=== PATIENT | male | born 1935 | race African-American/Black ===

== ENCOUNTER 2016-03-25 20:37 | Inpatient (IN) | payer MEDICARE, OTHER ==
[~2016-03-25] VITALS: Ht 172.7 cm; Wt 69.9 kg
[~2016-03-25 20:37] MED LIST: ACET325T9 PO; ASPI81TA2 PO; BISA10SU55 RC; DEXT37.56 PO; DOXA2TAB PO; DUTA0.5C PO; GABA-586 PO; GLIM4TAB2 PO; GLUC1KIT IM; HYDR-2762 PO; HYDR-965 PO; IBUP-1007 PO; IMIP50TA3 PO; ISOS30TA4 PO; LORA0.5T96 PO; MAG355OR12 PO; MAGN2400 PO; METF500T4 PO; MULT-460 PO; PHEN100C PO; SENN1TAB21 PO; SIMV10TA3 PO; VALS40TA2 PO
--- NOTE | 2016-03-25 21:10 | RAD ---
PROCEDURE CT scan of the head without contrast 03/25/2016 HISTORY Left-sided weakness with verbal changes. Code stroke. TECHNIQUE Unenhanced contiguous, 5 millimeter axial sections were obtained through the head. One or more of the following individualized dose reduction techniques were utilized for this study: 1. Automated exposure control. 2. Adjustment of the mA and/or kV according to patient size. 3. Use of iterative reconstruction technique. FINDINGS The patient is status post left frontal temporal craniotomy. A aneurysm clip is seen in the left aspect of the suprasellar cistern. There is generalized parenchymal atrophy. Areas of decreased attenuation are seen within the periventricular and and subcortical white matter of both cerebral hemispheres consistent with areas of small vessel ischemic disease. No acute parenchymal abnormality is seen. No extra-axial fluid collection is noted. No skull fracture is seen. IMPRESSION No acute intracranial abnormality is seen. Dr. Sinclair was notified of this result. Electronically signed by: Finn Portillo MD (Mar 25, 2016 21:09:24)
--- NOTE | 2016-03-25 21:32 | PHYS DOC ---
Past Medical History Past Medical History: Anxiety, CAD, Constipation, Depression, Diabetes-Type II , Diverticulitis, Diverticulosis, High Cholesterol, Hypertension, Prostatitis, Seizure, Stroke (Hemorrhagic), UTI, Vascular Disease, Other Additional Past Medical Histor: Mild left hemiparesis,BPH,EPILEPSY,DYSPHAGIA Past Surgical History: Other Additional Past Surgical Histo: R AKA Alcohol Use: None Drug Use: Cocaine Adult General Chief Complaint Chief Complaint: NEURO SYMPTOMS/DEFICITS HPI HPI Patient is a 81 year old male who presents by EMS from nursing facility for evaluation of acute altered mental status and left-sided weakness. They noted him to be in his normal state of health at 1940 with clear speech and being talkative. At 1999, he was noted to have left-sided facial droop, not using his left dominant hand as well as normal, and slurred speech. He denies headache, nausea, chest pain, fever, injury. Otherwise answer review of systems questions well. Nursing facility gave him an ASA 325mg prior to EMS transport. His brother is at bedside and states he appears to have left facial droop and slurred speech that is new. 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 Review of Systems Review of Systems Review of systems otherwise unobtainable secondary to clinical status Allergies Allergies Allergies Coded Allergies Type Severity Reaction Last Updated Verified I S O L A T I O N *CONTACT* Allergy Unknown 03/03/16 Yes No Known Medication Allergies Allergy Unknown 03/03/16 Yes Physical Exam Physical Exam Constitutional: Well developed, well nourished, no acute distress, non-toxic appearance. [] HENT: Normocephalic, atraumatic, bilateral external ears normal, oropharynx moist, no oral exudates, nose normal. [] Eyes: PERRLA, EOMI. [] Neck: Normal range of motion, supple, no stridor. [] Cardiovascular:Heart rate regular rhythm [] Lungs & Thorax: Bilateral breath sounds clear to auscultation [] Abdomen: Bowel sounds normal, soft, no tenderness. [] Skin: Warm, dry, no erythema, no rash. [] Back: No tenderness, no CVA tenderness. [] Extremities: No tenderness, ROM intact, no edema. Right AKA with well healing surgical site. [] Neurologic: Arousal - alert and cooperative, A&O x 3 Speech - regular rate, slurred Language: fluent and spontaneous speech CN 2: PERRL CN 3, 4, 6: EOM intact, has bilateral horizontal nystagmus CN 5: Normal sensation to light touch CN 7: Mild left facial droop CN 8: Equal hearing to finger rub CN 9/10: Intact CN 11: Normal shoulder shrug bilaterally CN 12: Tongue midline Motor exam: Bilateral upper and lower extremities with normal tone, 5/5 strength in upper extremities, 3/5 strength in LLE. Has mild left upper extremity drift, will move LLE but lets it fall to bed if raised. Coordination: Finger to nose normal Gait: not tested. Psychologic: Affect normal, judgement normal, mood normal. [] Current Patient Data Vital Signs Vital Signs Date Time Temp Pulse Resp B/P Pulse Ox O2 Delivery O2 Flow Rate FiO2 03/25/16 22:00 70 143/75 97 Room Air 03/25/16 20:40 99.0 18 99.0 Lab Values Laboratory Tests Test 03/25/16 21:45 White Blood Count 6.3x10^3/uL (4.0-11.0) Red Blood Count 3.40x10^6/uL (4.30-5.70) L Hemoglobin 10.6g/dL (13.0-17.5) L Hematocrit 31.9% (39.0-53.0) L Mean Corpuscular Volume 94fL (79-100) Mean Corpuscular Hemoglobin 31pg (25-35) Mean Corpuscular Hemoglobin Concent 33g/dL (31-37) Red Cell Distribution Width 15.2% (11.5-14.5) H Platelet Count 349x10^3/uL (140-400) Neutrophils (%) (Auto) 55% (31-73) Lymphocytes (%) (Auto) 32% (24-48) Monocytes (%) (Auto) 11% (0-9) H Eosinophils (%) (Auto) 2% (0-3) Basophils (%) (Auto) 0% (0-3) Neutrophils # (Auto) 3.5x10^3uL (1.8-7.7) Lymphocytes # (Auto) 2.0x10^3/uL (1.0-4.8) Monocytes # (Auto) 0.7x10^3/uL (0.0-1.1) Eosinophils # (Auto) 0.1x10^3/uL (0.0-0.7) Basophils # (Auto) 0.0x10^3/uL (0.0-0.2) Prothrombin Time 16.2SEC (11.7-14.0) H Prothrombin Time INR 1.4 (0.8-1.1) H PTT 29SEC (24-38) Sodium Level 140mmol/L (136-145) Potassium Level 3.8mmol/L (3.5-5.1) Chloride Level 102mmol/L (98-107) Carbon Dioxide Level 29mmol/L (21-32) Anion Gap 9 (6-14) Blood Urea Nitrogen 13mg/dL (8-26) Creatinine 1.1mg/dL (0.7-1.3) Estimated GFR (Cockcroft-Gault) 78.1 Glucose Level 86mg/dL (70-99) Calcium Level 8.9mg/dL (8.5-10.1) Magnesium Level 2.0mg/dL (1.8-2.4) Total Bilirubin 0.1mg/dL (0.2-1.0) L Direct Bilirubin < 0.1mg/dL (0.0-0.2) Aspartate Amino Transferase (AST) 33U/L (15-37) Alanine Aminotransferase (ALT) 16U/L (16-63) Alkaline Phosphatase 241U/L (46-116) H Troponin I Quantitative < 0.017ng/mL (0.000-0.055) BX-Jfu-T-Type Natriuretic Peptide 60pg/mL (0-449) Total Protein 8.1g/dL (6.4-8.2) Albumin 3.4g/dL (3.4-5.0) Laboratory Tests 03/25/16 21:45 Laboratory Tests 03/25/16 21:45 EKG EKG EKG as interpreted by me as normal sinus rhythm, rate 69, no ST-T changes, normal intervals, no ectopy Radiology/Procedures Radiology/Procedures Chest x-ray as interpreted by me as no acute cardiopulmonary disease process Head CT without contrast IMPRESSION No acute intracranial abnormality is seen. Dr. Ayon was notified of this result. Electronically signed by: Finn Portillo MD (Mar 25, 2016 21:09:24) Course & Med Decision Making Course & Med Decision Making Pertinent Labs and Imaging studies reviewed. (See chart for details) NIHSS 9 (1 left face droop, 1 LUE drift, 2 LLE drift, 2 aphasia, 2 dysarthria, 1 inattention) with nonacute head CT as above concerning for acute ischemic stroke. He is not a thrombolysis candidate due to history of hemorrhagic stroke. His lab evaluation is unremarkable. Discussed findings with Dr. Mendoza, neurology, who agrees with no TPA at this time and recommends starting plavix as he is on chronic ASA therapy. Discussed admit with Dr. Heck, who will admit. Dragon Disclaimer Dragon Disclaimer This electronic medical record was generated, in whole or in part, using a voice recognition dictation system. Departure Departure Impression: Primary Impression: Stroke Disposition: ADMITTED INPATIENT Condition: STABLE Referrals: SEGUNDO HENRY MD (PCP) Problem Qualifiers Primary Impression: Stroke CVA mechanism: unspecified Qualified Code: I63.9 - Cerebral infarction, unspecified Jessika AYON MD Mar 25, 2016 21:32
[2016-03-25 22:17] LABS: ANION GAP 9 (6-14); BLOOD UREA NITROGEN 13 mg/dL (8-26); CALCIUM 8.9 mg/dL (8.5-10.1); CARBON DIOXIDE 29 mmol/L (21-32); CHLORIDE 102 mmol/L (98-107); CREATININE 1.1 mg/dL (0.7-1.3); GFR 78.1; GLUCOSE 86 mg/dL (70-99); POTASSIUM 3.8 mmol/L (3.5-5.1); SODIUM 140 mmol/L (136-145)
[2016-03-25 22:18] LABS: BASO % 0 % (0-3); EOS % 2 % (0-3); HEMATOCRIT 31.9 % (39.0-53.0); HEMOGLOBIN 10.6 g/dL (13.0-17.5); LYMPH % 32 % (24-48); MEAN CORPUSCULAR HEMOGLOBIN 31 pg (25-35); MEAN CORPUSCULAR HGB CONC 33 g/dL (31-37); MEAN CORPUSCULAR VOLUME 94 fL (79-100); MONO % 11 % (0-9); NEUT % 55 % (31-73); PLATELET COUNT 349 x10^3/uL (140-400); RED CELL DISTRIBUTION WIDTH 15.2 % (11.5-14.5); WHITE BLOOD COUNT 6.3 x10^3/uL (4.0-11.0)
[2016-03-25 22:23] LABS: ALBUMIN 3.4 g/dL (3.4-5.0); ALK PHOS 241 U/L (46-116); ALT (SGPT) 16 U/L (16-63); AST (SGOT) 33 U/L (15-37); DIRECT BILIRUBIN < 0.1 mg/dL (0.0-0.2); TOTAL BILIRUBIN 0.1 mg/dL (0.2-1.0); TOTAL PROTEIN 8.1 g/dL (6.4-8.2)
[2016-03-25 22:30] LABS: INR 1.4 (0.8-1.1); PROTHROMBIN TIME PATIENT 16.2 SEC (11.7-14.0)
[2016-03-25] MEDS ORDERED: ONDANSETRON PF 4 MG/2 ML VIAL. IV PRN (22:30)
[2016-03-25] MEDS ORDERED: ACETAMINOPHEN 325 MG TABLET. PO PRN (22:30)
[2016-03-25] MEDS ORDERED: FENTANYL PF 100 MCG/2 ML VIAL. IV PRN (22:30)
--- NOTE | 2016-03-25 23:13 | ACF ---
Admission Forms Criteria STROKE: HEMORRHAGIC Clinical Indications for Admission to Inpatient Care (Place 'X' for any and all applicable criteria): Admission is indicated for ANY ONE of the following(1)(2)(3)(4): [ X]I. Acute hemorrhagic (eg, intracerebral) stroke Extended stay beyond goal length of stay may be needed for(1)(2)(6) [ ]a) Surgical intervention (9) [ ]b) Major deficit [ ]c) Increased intracranial pressure [ ]d) Hydrocephalus [ ]e) Seizures [ ]f) Venous thromboembolism [ ]g) Severe electrolyte abnormality (eg, hypernatremia, hyponatremia) [ ]h) Hospital-acquired infection (eg, urinary tract infection, pneumonia) [ ]i) Comorbidities (heart failure, renal failure) The original [facility] content created by [facility] has been revised. The portions of the content which have been revised are identified through the use of italic text or in bold, and [facility] has neither reviewed nor approved the modified material. All other unmodified content is copyright [facility]. Please see references footnoted in the original [facility] edition 2016 Admission Criteria Met?: Yes ERMELINDA HUNT Mar 25, 2016 23:13
[2016-03-25 23:30] VITALS: BP 120/67
[2016-03-26] MEDS ORDERED: PNEUMOCOCCAL VAX SCREEN BY RX. MC ONE (00:30)
[2016-03-26] MEDS ORDERED: INFLUENZA VAX SCREEN BY RX. MC ONE (00:30)
[2016-03-26] MEDS ORDERED: BUPR150T6 PO (00:39)
[2016-03-26 03:00] VITALS: BP 121/68
[2016-03-26 04:38] LABS: BILIRUBIN,URINE SMALL (NEG); GLUCOSE,URINE NEGATIVE (NEG); NITRITE,URINE NEGATIVE (NEG); PH,URINE 5.5; PROTEIN,URINE NEGATIVE (NEG-TRACE); UROBILINOGEN,URINE 0.2 mg/dL (0.2 mg/dL)
[2016-03-26 04:45] LABS: BACTERIA,URINE 0 /HPF (0-FEW); SQUAMOUS EPITHELIAL CELL,UR FEW /LPF; WBC,URINE 0 /HPF (0-4)
[2016-03-26 07:25] VITALS: BP 101/69
--- NOTE | 2016-03-26 08:20 | RAD ---
EXAM: Chest, single view. HISTORY: Altered mental status. COMPARISON: 02/28/2016. FINDINGS: A frontal view of the chest is obtained. There is bilateral lower lobe atelectasis. There is stable widening of the right paratracheal stripe likely due to tortuous arch great vessels or intrathoracic extension of a thyroid goiter. The heart is normal in size. There is no pneumothorax or pleural effusion. IMPRESSION: 1. Bilateral lower lobe atelectasis. 2. Stable widening of the right paratracheal stripe.
--- NOTE | 2016-03-26 09:17 | EKG ---
[facility] [address] [place] [address] Test Date: 2016-03-25 Test Time: 21:00:22 Pat Name: FERNANDO LÓPEZ Department: Room: [facility] Gender: M Lead Mechanical Engineer: : 1935 Requested By: Jessika AYON Order Number: [id number] Reading MD: Cristian Evans Measurements Intervals [place] Rate: 69 P: 0 GA: 132 QRS: 30 QRSD: 70 T: -2 QT: 366 QTc: 394 Interpretive Statements SINUS RHYTHM Electronically Signed On 03-28-2016 10:31:05 [employer] by Cristian Evans
[2016-03-26] MEDS ORDERED: ACETAMINOPHEN 325 MG TABLET. PO PRN (09:30)
[2016-03-26] MEDS ORDERED: HYDROCODONE/APAP 5/325MG TABLET. PO PRN (09:30)
[2016-03-26] MEDS ORDERED: ONDANSETRON PF 4 MG/2 ML VIAL. IV PRN (09:30)
[2016-03-26] MEDS ORDERED: ALBUTEROL SULFATE 2.5 MG/3 ML NEBU. NEB PRN (09:30)
[2016-03-26] MEDS ORDERED: hydrALAZINE 20 MG/ML VIAL. IVP PRN (09:30)
[2016-03-26] MEDS ORDERED: IBUPROFEN 600 MG TABLET. PO PRN (09:45)
[2016-03-26] MEDS ORDERED: SENNOSIDES/DOCUSATE 8.6/50MG TABLET. PO PRN (09:45)
[2016-03-26] MEDS ORDERED: BISACODYL 10 MG SUPP.RECT RC PRN (09:45)
--- NOTE | 2016-03-26 09:47 | PDOC1 ---
History and Physical Past Medical History Past Medical History PAST MEDICAL HISTORY: Anxiety, coronary artery disease, depression, type 2 diabetes mellitus, hyperlipidemia, hypertension, seizures, CVA, UTI and vascular disease, hemiplegia and hemiparesis. PAST SURGICAL HISTORY: None. PERSONAL HISTORY: No smoking, no alcohol, former cocaine user. ALLERGIES: NKDA. FAMILY HISTORY: Hypertension. Family History Family History: No Significant Social History ALCOHOL: none Drugs: Cocaine Current Problem List Problem List Problems Medical Problems: (1) Stroke Status: Acute Current Medications Current Medications Current Medications Medications (Trade) Dose Ordered Sig/Hill Start Time Stop Time Status Last Admin Dose Admin Acetaminophen (Tylenol) 325 mg PRN Q6HRS PRN 03/26/16 09:30 Acetaminophen/ Hydrocodone Bitart (Lortab 5/325) 1 tab PRN Q6HRS PRN 03/26/16 09:30 Albuterol Sulfate (Ventolin Neb Soln) 2.5 mg PRN Q4HRS PRN 03/26/16 09:30 Fentanyl Citrate (Fentanyl 2ml Vial) 50 mcg PRN Q2HR PRN 03/25/16 22:30 03/26/16 22:29 Hydralazine HCl (Apresoline) 10 mg PRN Q4HRS PRN 03/26/16 09:30 Info (Do NOT chart on this placeholder) 1 each 1X ONCE 03/26/16 00:30 03/26/16 00:31 UNV Ondansetron HCl (Zofran) 4 mg PRN Q8HRS PRN 03/26/16 09:30 Pneumococcal Polyvalent Vaccine (Do NOT chart on this placeholder) 1 each 1X ONCE 03/26/16 00:30 03/26/16 00:31 UNV Allergies Allergies Allergies Coded Allergies Type Severity Reaction Last Updated Verified I S O L A T I O N *CONTACT* Allergy Unknown 03/03/16 Yes No Known Medication Allergies Allergy Unknown 03/03/16 Yes ROS Review of System NOT ABLE TO OBTAIN PT IS NOT CO OPERATIVE PER ER, SENT TO ER CONCERNING FOR CVA. , Physical Exam Physical Exam GEN.: No apparent distress. Alert and oriented to self HEENT: Head is normocephalic, atraumatic NECK: Supple. no jvd LUNGS: Clear to auscultation. HEART: RRR, S1, S2 present. Peripheral pulses intact ABDOMEN: Soft, nontender. Positive bowel sounds. not letting me examine his strength, not letting me see his lower extremities. rest of the exam, not able do it as he is not co operative, Vitals Vitals Vital Signs Date Time Temp Pulse Resp B/P Pulse Ox O2 Delivery O2 Flow Rate FiO2 03/26/16 07:25 97.5 78 17 101/69 95 Room Air 97.5 Labs Labs Laboratory Tests Test 03/25/16 21:45 03/26/16 04:30 White Blood Count 6.3x10^3/uL (4.0-11.0) Red Blood Count 3.40x10^6/uL (4.30-5.70) Hemoglobin 10.6g/dL (13.0-17.5) Hematocrit 31.9% (39.0-53.0) Mean Corpuscular Volume 94fL (79-100) Mean Corpuscular Hemoglobin 31pg (25-35) Mean Corpuscular Hemoglobin Concent 33g/dL (31-37) Red Cell Distribution Width 15.2% (11.5-14.5) Platelet Count 349x10^3/uL (140-400) Neutrophils (%) (Auto) 55% (31-73) Lymphocytes (%) (Auto) 32% (24-48) Monocytes (%) (Auto) 11% (0-9) Eosinophils (%) (Auto) 2% (0-3) Basophils (%) (Auto) 0% (0-3) Neutrophils # (Auto) 3.5x10^3uL (1.8-7.7) Lymphocytes # (Auto) 2.0x10^3/uL (1.0-4.8) Monocytes # (Auto) 0.7x10^3/uL (0.0-1.1) Eosinophils # (Auto) 0.1x10^3/uL (0.0-0.7) Basophils # (Auto) 0.0x10^3/uL (0.0-0.2) Prothrombin Time 16.2SEC (11.7-14.0) Prothromb Time International Ratio 1.4 (0.8-1.1) Activated Partial Thromboplast Time 29SEC (24-38) Sodium Level 140mmol/L (136-145) Potassium Level 3.8mmol/L (3.5-5.1) Chloride Level 102mmol/L (98-107) Carbon Dioxide Level 29mmol/L (21-32) Anion Gap 9 (6-14) Blood Urea Nitrogen 13mg/dL (8-26) Creatinine 1.1mg/dL (0.7-1.3) Estimated GFR (Cockcroft-Gault) 78.1 Glucose Level 86mg/dL (70-99) Calcium Level 8.9mg/dL (8.5-10.1) Magnesium Level 2.0mg/dL (1.8-2.4) Total Bilirubin 0.1mg/dL (0.2-1.0) Direct Bilirubin < 0.1mg/dL (0.0-0.2) Aspartate Amino Transf (AST/SGOT) 33U/L (15-37) Alanine Aminotransferase (ALT/SGPT) 16U/L (16-63) Alkaline Phosphatase 241U/L (46-116) Troponin I Quantitative < 0.017ng/mL (0.000-0.055) GO-Mka-P-Type Natriuretic Peptide 60pg/mL (0-449) Total Protein 8.1g/dL (6.4-8.2) Albumin 3.4g/dL (3.4-5.0) Urine Collection Type Unknown Urine Color Tracie Urine Clarity Clear Urine pH 5.5 Urine Specific [place] 1.025 Urine Protein Negativemg/dL (NEG-TRACE) Urine Glucose (UA) Negativemg/dL (NEG) Urine Ketones (Stick) Tracemg/dL (NEG) Urine Blood Trace (NEG) Urine Nitrite Negative (NEG) Urine Bilirubin Small (NEG) Urine Urobilinogen Dipstick 0.2mg/dL (0.2 mg/dL) Urine Leukocyte Esterase Negative (NEG) Urine RBC 1-2/HPF (0-2) Urine WBC 0/HPF (0-4) Urine Squamous Epithelial Cells Few/LPF Urine Amorphous Sediment Present/HPF Urine Bacteria 0/HPF (0-FEW) Urine Mucus Mod/LPF Laboratory Tests Test 03/25/16 21:45 03/26/16 04:30 White Blood Count 6.3x10^3/uL (4.0-11.0) Red Blood Count 3.40x10^6/uL (4.30-5.70) Hemoglobin 10.6g/dL (13.0-17.5) Hematocrit 31.9% (39.0-53.0) Mean Corpuscular Volume 94fL (79-100) Mean Corpuscular Hemoglobin 31pg (25-35) Mean Corpuscular Hemoglobin Concent 33g/dL (31-37) Red Cell Distribution Width 15.2% (11.5-14.5) Platelet Count 349x10^3/uL (140-400) Neutrophils (%) (Auto) 55% (31-73) Lymphocytes (%) (Auto) 32% (24-48) Monocytes (%) (Auto) 11% (0-9) Eosinophils (%) (Auto) 2% (0-3) Basophils (%) (Auto) 0% (0-3) Neutrophils # (Auto) 3.5x10^3uL (1.8-7.7) Lymphocytes # (Auto) 2.0x10^3/uL (1.0-4.8) Monocytes # (Auto) 0.7x10^3/uL (0.0-1.1) Eosinophils # (Auto) 0.1x10^3/uL (0.0-0.7) Basophils # (Auto) 0.0x10^3/uL (0.0-0.2) Prothrombin Time 16.2SEC (11.7-14.0) Prothromb Time International Ratio 1.4 (0.8-1.1) Activated Partial Thromboplast Time 29SEC (24-38) Sodium Level 140mmol/L (136-145) Potassium Level 3.8mmol/L (3.5-5.1) Chloride Level 102mmol/L (98-107) Carbon Dioxide Level 29mmol/L (21-32) Anion Gap 9 (6-14) Blood Urea Nitrogen 13mg/dL (8-26) Creatinine 1.1mg/dL (0.7-1.3) Estimated GFR (Cockcroft-Gault) 78.1 Glucose Level 86mg/dL (70-99) Calcium Level 8.9mg/dL (8.5-10.1) Magnesium Level 2.0mg/dL (1.8-2.4) Total Bilirubin 0.1mg/dL (0.2-1.0) Direct Bilirubin < 0.1mg/dL (0.0-0.2) Aspartate Amino Transf (AST/SGOT) 33U/L (15-37) Alanine Aminotransferase (ALT/SGPT) 16U/L (16-63) Alkaline Phosphatase 241U/L (46-116) Troponin I Quantitative < 0.017ng/mL (0.000-0.055) AP-Vki-B-Type Natriuretic Peptide 60pg/mL (0-449) Total Protein 8.1g/dL (6.4-8.2) Albumin 3.4g/dL (3.4-5.0) Urine Collection Type Unknown Urine Color Tracie Urine Clarity Clear Urine pH 5.5 Urine Specific [place] 1.025 Urine Protein Negativemg/dL (NEG-TRACE) Urine Glucose (UA) Negativemg/dL (NEG) Urine Ketones (Stick) Tracemg/dL (NEG) Urine Blood Trace (NEG) Urine Nitrite Negative (NEG) Urine Bilirubin Small (NEG) Urine Urobilinogen Dipstick 0.2mg/dL (0.2 mg/dL) Urine Leukocyte Esterase Negative (NEG) Urine RBC 1-2/HPF (0-2) Urine WBC 0/HPF (0-4) Urine Squamous Epithelial Cells Few/LPF Urine Amorphous Sediment Present/HPF Urine Bacteria 0/HPF (0-FEW) Urine Mucus Mod/LPF VTE Prophylaxis Ordered VTE Prophylaxis Devices: Yes VTE Pharmacological Prophylaxi: Yes NORMA LINARES MD Mar 26, 2016 09:47
[2016-03-26] MEDS: METFORMIN 500 MG TABLET. PO SCH (11:00)
[2016-03-26] MEDS: MAGNESIUM HYDROXIDE 2,400 MG/30 ML ORAL.SUSP. PO SCH (11:00)
[2016-03-26] MEDS: PHENYTOIN SODIUM EXTENDED 100 MG CAPSULE PO SCH ×2 (11:00→20:16)
[2016-03-26] MEDS: MULTIVITAMIN with MINERAL TABLET. PO SCH (11:00)
[2016-03-26] MEDS: DUTASTERIDE 0.5 MG CAPSULE PO SCH (11:00)
[2016-03-26] MEDS: DOXAZOSIN MESYLATE 1 MG TABLET PO SCH (11:00)
[2016-03-26] MEDS: LOSARTAN POTASSIUM 25 MG TABLET. PO SCH (11:00)
[2016-03-26] MEDS: buPROPion XL 150 MG TAB.ER.24H PO SCH ×2 (11:00→20:17)
[2016-03-26] MEDS: ISOSORBIDE MONONITRATE ER 30 MG TAB.ER.24H PO SCH (11:00)
[2016-03-26 11:04] VITALS: BP 124/76
[2016-03-26] MEDS: GLIMEPIRIDE 2 MG TABLET PO SCH (11:09)
[2016-03-26] MEDS: GABAPENTIN 300 MG CAPSULE. PO SCH ×2 (14:00→20:17)
[2016-03-26] MEDS ORDERED: ASPIRIN 325 MG TABLET PO SCH (16:30)
--- NOTE | 2016-03-26 17:20 | PDOC2 ---
CONSULT Date of Consult Date of Consult DATE: 03/26/16 TIME: 17:18 Reason for Consult Reason for Consult: CVA History of Present Illness Reason for Visit: This patient is 81-year-old male who presented to the emergency room via EMS with left-sided weakness. Information from patient's brother at bedside. Patient came from senior living via EMS with complaint of left-sided weakness. His last seen normal was yesterday afternoon and was having difficulty speaking and was having left-sided weakness and left facial droop. Patient was taking aspirin before. 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 Patient is status post surgical clipping per brother. He had a CT scan of the brain done in the ER which did not show any acute process. We will recommend stroke workup. MRI of the brain cannot be done due to's status post surgical clipping of aneurysm. Aspirin. Will switch to Plavix 75 mg daily Stroke protocol Statin 2-D echo carotid Doppler Continue medical management Family History Family History: No Significant Social History ALCOHOL: none Drugs: Cocaine Lives: Residential Current Problem List Problem List Problems Medical Problems: (1) Stroke Status: Acute Current Medications Current Medications Current Medications Ondansetron HCl (Zofran) 4 mg PRN Q8HRS PRN IV NAUSEA/VOMITING; Start 03/25/16 at 22:30; Stop 03/26/16 at 22:29 Fentanyl Citrate (Fentanyl 2ml Vial) 50 mcg PRN Q2HR PRN IV PAIN; Start at 22:30; Stop 03/26/16 at 22:29 Acetaminophen (Tylenol) 650 mg PRN Q4HRS PRN PO FEVER; Start 03/25/16 at 22:30 ; Stop 03/26/16 at 22:29 Info (Do NOT chart on this placeholder) 1 each 1X ONCE MC ; Start 03/26/16 at 00:30; Stop 03/26/16 at 00:31; Status UNV Pneumococcal Polyvalent Vaccine (Do NOT chart on this placeholder) 1 each 1X ONCE MC ; Start 03/26/16 at 00:30; Stop 03/26/16 at 00:31; Status UNV Acetaminophen (Tylenol) 325 mg PRN Q6HRS PRN PO MILD PAIN / TEMP; Start at 09:30 Acetaminophen/ Hydrocodone Bitart (Lortab 5/325) 1 tab PRN Q6HRS PRN PO MODERATE TO SEVERE PAIN; Start 03/26/16 at 09:30 Hydralazine HCl (Apresoline) 10 mg PRN Q4HRS PRN IVP ELEVATED BP, SEE COMMENTS ; Start 03/26/16 at 09:30 Ondansetron HCl (Zofran) 4 mg PRN Q8HRS PRN IV NAUSEA/VOMITING; Start 03/26/16 at 09:30 Albuterol Sulfate (Ventolin Neb Soln) 2.5 mg PRN Q4HRS PRN NEB SHORTNESS OF BREATH; Start 03/26/16 at 09:30 Bisacodyl (Dulcolax Supp) 10 mg PRN Q48HR PRN RC CONSTIPATION; Start 03/26/16 at 09:45 Bupropion HCl (Wellbutrin Xl) 75 mg BID PO ; Start 03/26/16 at 11:00 Dutasteride (Avodart) 0.5 mg DAILY PO ; Start 03/26/16 at 11:00 Gabapentin (Neurontin) 300 mg TID PO ; Start 03/26/16 at 14:00 Ibuprofen (Motrin) 600 mg PRN Q8HRS PRN PO INFLAMMATION; Start 03/26/16 at 09: 45 Isosorbide Mononitrate (Imdur) 30 mg DAILY PO ; Start 03/26/16 at 11:00 Metformin HCl (Glucophage) 500 mg DAILY PO ; Start 03/26/16 at 11:00 Phenytoin Sodium (Dilantin) 300 mg BID PO ; Start 03/26/16 at 11:00 Senna/Docusate Sodium (Senna Plus) 2 tab PRN BID PRN PO CONSTIPATION; Start at 09:45 Simvastatin (Zocor) 10 mg QHS PO ; Start 03/26/16 at 21:00 Doxazosin Mesylate (Cardura) 2 mg DAILY PO ; Start 03/26/16 at 11:00 Glimepiride (Amaryl) 4 mg DAILY PO ; Start 03/26/16 at 12:00 Magnesium Hydroxide (Milk Of Magnesia) 2,400 mg DAILY PO ; Start 03/26/16 at 11: 00 Multivitamins/ Calcium (Thera M Plus) 1 tab DAILY PO ; Start 03/26/16 at 11:00 Losartan Potassium (Cozaar) 25 mg DAILY PO ; Start 03/26/16 at 11:00 Enoxaparin Sodium (Lovenox 40mg Syringe) 40 mg DAILY SQ ; Start 03/26/16 at 21: 00 Aspirin (Timur Aspirin) 325 mg DAILYWBKFT PO ; Start 03/26/16 at 16:30 Active Scripts Active Reported Bupropion Xl (Bupropion Hcl) 150 Mg Tab.er.24h 75 Mg PO BID Senna Plus Tablet (Sennosides/Docusate Sodium) 1 Each Tablet 2 Each PO PRN BID PRN Tylenol (Acetaminophen) 325 Mg Tablet 650 Mg PO Simvastatin 10 Mg Tablet 1 Tab PO QHS Maalox Maximum Strength Susp (Mag Hydrox/Al Hydrox/Simeth) 355 Ml Oral.susp 15 Ml PO Milk Of Magnesia (Magnesium Hydroxide) 2,400 Mg/10 Ml Oral.susp 2,400 Mg PO DAILY Multiple Vitamin (Multivitamin With Minerals) 1 Each Tablet 1 Each PO DAILY Metformin Hcl 500 Mg Tablet 1 Tab PO DAILY Isosorbide Mononitrate Er (Isosorbide Mononitrate) 30 Mg Tab.er.24h 1 Tab PO DAILY Ibuprofen 600 Mg Tablet 600 Mg PO PRN Q8HRS PRN Gluco Burst (Dextrose) 37.5 Gm Gel..gram. Unknown Dose PO Glucagon Emergency Kit (Glucagon,Human Recombinant) 1 Mg Kit 1 Mg IM PRN PRN Glimepiride 4 Mg Tablet 1 Tab PO DAILY Gabapentin 300 Mg Capsule 300 Mg PO TID Dulcolax (Bisacodyl) 10 Mg Supp.rect 10 Mg RC PRN Q48HR PRN Diovan (Valsartan) 40 Mg Tablet 40 Mg PO DAILY Dilantin (Phenytoin Sodium Extended) 100 Mg Capsule 300 Mg PO BID Cardura (Doxazosin Mesylate) 2 Mg Tablet 1 Tab PO QHS Avodart (Dutasteride) 0.5 Mg Capsule 0.5 Mg PO DAILY Ativan (Lorazepam) 0.5 Mg Tablet 0.5 Mg PO PRN Q4HRS PRN Aspirin 81 Mg Tab.chew 1 Tab PO DAILY Allergies Allergies: Coded Allergies: I S O L A T I O N *CONTACT* (Verified Allergy, Unknown, 03/03/16) (R) Kleb. pneumoniae ?ESBL No Known Medication Allergies (Verified Allergy, Unknown, 03/03/16) ROS Review of System Currently of systems negative except as reported in history of present illness. Physical Exam Physical Exam PHYSICAL EXAMINATION: General appearance is in acute distress. HEENT: Normocephalic and nontraumatic. Eyes, nose, ears, and throat are unremarkable. Neck is supple. No lymphadenopathy. No crepitus. Cardiovascular: S1, S2, regular rate and rhythm. Pulmonary: Clear to auscultation bilaterally. Abdomen: Bowel sounds are positive. Abdomen is soft, nontender, and nondistended. Extremities: No rash, lesions, or edema. No restriction of range of motion NEUROLOGICAL EXAMINATION: Alert Oriented to time, place and person. PERRL. EOMI. CN: no focal findings. Muscle tone: within normal. Muscle strength: good in upper exts right leg amp+ left leg withdraw to pain DTR: 1-2 Plantar reflex: Flexor response left toes Gait: not examined in bed. Sensory exam: no abnormal findings. No obvious cerebellar signs elicited. Vitals VITALS Vital Signs Date Time Temp Pulse Resp B/P Pulse Ox O2 Delivery O2 Flow Rate FiO2 03/26/16 11:04 97.4 76 17 124/76 100 Room Air 97.4 Labs Labs Laboratory Tests Test 03/25/16 21:45 03/26/16 04:30 White Blood Count 6.3x10^3/uL (4.0-11.0) Red Blood Count 3.40x10^6/uL (4.30-5.70) Hemoglobin 10.6g/dL (13.0-17.5) Hematocrit 31.9% (39.0-53.0) Mean Corpuscular Volume 94fL (79-100) Mean Corpuscular Hemoglobin 31pg (25-35) Mean Corpuscular Hemoglobin Concent 33g/dL (31-37) Red Cell Distribution Width 15.2% (11.5-14.5) Platelet Count 349x10^3/uL (140-400) Neutrophils (%) (Auto) 55% (31-73) Lymphocytes (%) (Auto) 32% (24-48) Monocytes (%) (Auto) 11% (0-9) Eosinophils (%) (Auto) 2% (0-3) Basophils (%) (Auto) 0% (0-3) Neutrophils # (Auto) 3.5x10^3uL (1.8-7.7) Lymphocytes # (Auto) 2.0x10^3/uL (1.0-4.8) Monocytes # (Auto) 0.7x10^3/uL (0.0-1.1) Eosinophils # (Auto) 0.1x10^3/uL (0.0-0.7) Basophils # (Auto) 0.0x10^3/uL (0.0-0.2) Prothrombin Time 16.2SEC (11.7-14.0) Prothromb Time International Ratio 1.4 (0.8-1.1) Activated Partial Thromboplast Time 29SEC (24-38) Sodium Level 140mmol/L (136-145) Potassium Level 3.8mmol/L (3.5-5.1) Chloride Level 102mmol/L (98-107) Carbon Dioxide Level 29mmol/L (21-32) Anion Gap 9 (6-14) Blood Urea Nitrogen 13mg/dL (8-26) Creatinine 1.1mg/dL (0.7-1.3) Estimated GFR (Cockcroft-Gault) 78.1 Glucose Level 86mg/dL (70-99) Calcium Level 8.9mg/dL (8.5-10.1) Magnesium Level 2.0mg/dL (1.8-2.4) Total Bilirubin 0.1mg/dL (0.2-1.0) Direct Bilirubin < 0.1mg/dL (0.0-0.2) Aspartate Amino Transf (AST/SGOT) 33U/L (15-37) Alanine Aminotransferase (ALT/SGPT) 16U/L (16-63) Alkaline Phosphatase 241U/L (46-116) Troponin I Quantitative < 0.017ng/mL (0.000-0.055) LQ-Uec-S-Type Natriuretic Peptide 60pg/mL (0-449) Total Protein 8.1g/dL (6.4-8.2) Albumin 3.4g/dL (3.4-5.0) Urine Collection Type Unknown Urine Color Tracie Urine Clarity Clear Urine pH 5.5 Urine Specific [place] 1.025 Urine Protein Negativemg/dL (NEG-TRACE) Urine Glucose (UA) Negativemg/dL (NEG) Urine Ketones (Stick) Tracemg/dL (NEG) Urine Blood Trace (NEG) Urine Nitrite Negative (NEG) Urine Bilirubin Small (NEG) Urine Urobilinogen Dipstick 0.2mg/dL (0.2 mg/dL) Urine Leukocyte Esterase Negative (NEG) Urine RBC 1-2/HPF (0-2) Urine WBC 0/HPF (0-4) Urine Squamous Epithelial Cells Few/LPF Urine Amorphous Sediment Present/HPF Urine Bacteria 0/HPF (0-FEW) Urine Mucus Mod/LPF Laboratory Tests Test 03/25/16 21:45 03/26/16 04:30 White Blood Count 6.3x10^3/uL (4.0-11.0) Red Blood Count 3.40x10^6/uL (4.30-5.70) Hemoglobin 10.6g/dL (13.0-17.5) Hematocrit 31.9% (39.0-53.0) Mean Corpuscular Volume 94fL (79-100) Mean Corpuscular Hemoglobin 31pg (25-35) Mean Corpuscular Hemoglobin Concent 33g/dL (31-37) Red Cell Distribution Width 15.2% (11.5-14.5) Platelet Count 349x10^3/uL (140-400) Neutrophils (%) (Auto) 55% (31-73) Lymphocytes (%) (Auto) 32% (24-48) Monocytes (%) (Auto) 11% (0-9) Eosinophils (%) (Auto) 2% (0-3) Basophils (%) (Auto) 0% (0-3) Neutrophils # (Auto) 3.5x10^3uL (1.8-7.7) Lymphocytes # (Auto) 2.0x10^3/uL (1.0-4.8) Monocytes # (Auto) 0.7x10^3/uL (0.0-1.1) Eosinophils # (Auto) 0.1x10^3/uL (0.0-0.7) Basophils # (Auto) 0.0x10^3/uL (0.0-0.2) Prothrombin Time 16.2SEC (11.7-14.0) Prothromb Time International Ratio 1.4 (0.8-1.1) Activated Partial Thromboplast Time 29SEC (24-38) Sodium Level 140mmol/L (136-145) Potassium Level 3.8mmol/L (3.5-5.1) Chloride Level 102mmol/L (98-107) Carbon Dioxide Level 29mmol/L (21-32) Anion Gap 9 (6-14) Blood Urea Nitrogen 13mg/dL (8-26) Creatinine 1.1mg/dL (0.7-1.3) Estimated GFR (Cockcroft-Gault) 78.1 Glucose Level 86mg/dL (70-99) Calcium Level 8.9mg/dL (8.5-10.1) Magnesium Level 2.0mg/dL (1.8-2.4) Total Bilirubin 0.1mg/dL (0.2-1.0) Direct Bilirubin < 0.1mg/dL (0.0-0.2) Aspartate Amino Transf (AST/SGOT) 33U/L (15-37) Alanine Aminotransferase (ALT/SGPT) 16U/L (16-63) Alkaline Phosphatase 241U/L (46-116) Troponin I Quantitative < 0.017ng/mL (0.000-0.055) BR-Pmu-V-Type Natriuretic Peptide 60pg/mL (0-449) Total Protein 8.1g/dL (6.4-8.2) Albumin 3.4g/dL (3.4-5.0) Urine Collection Type Unknown Urine Color Tracie Urine Clarity Clear Urine pH 5.5 Urine Specific [place] 1.025 Urine Protein Negativemg/dL (NEG-TRACE) Urine Glucose (UA) Negativemg/dL (NEG) Urine Ketones (Stick) Tracemg/dL (NEG) Urine Blood Trace (NEG) Urine Nitrite Negative (NEG) Urine Bilirubin Small (NEG) Urine Urobilinogen Dipstick 0.2mg/dL (0.2 mg/dL) Urine Leukocyte Esterase Negative (NEG) Urine RBC 1-2/HPF (0-2) Urine WBC 0/HPF (0-4) Urine Squamous Epithelial Cells Few/LPF Urine Amorphous Sediment Present/HPF Urine Bacteria 0/HPF (0-FEW) Urine Mucus Mod/LPF Assessment/Plan Assessment/Plan This patient is 81-year-old male who presented to the emergency room via EMS with left-sided weakness. Information from patient's brother at bedside. Patient came from senior living via EMS with complaint of left-sided weakness. His last seen normal was yesterday afternoon and was having difficulty speaking and was having left-sided weakness and left facial droop. Patient was taking aspirin before. 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 Patient is status post surgical clipping per brother. He had a CT scan of the brain done in the ER which did not show any acute process. We will recommend stroke workup. MRI of the brain cannot be done due to's status post surgical clipping of aneurysm. Aspirin. Will switch to Plavix 75 mg daily Stroke protocol Statin 2-D echo carotid Doppler Continue medical management ALICIA MIDDLETON MD Mar 26, 2016 17:20
[2016-03-26] MEDS: CLOPIDOGREL BISULFATE 75 MG TABLET PO SCH (18:00)
[2016-03-26 19:28] VITALS: BP 114/68
[2016-03-26] MEDS: SIMVASTATIN 10 MG TABLET PO SCH ×2 (20:17→21:00)
--- NOTE | 2016-03-26 21:11 | HP ---
ADMIT DATE: 03/26/2016 CHIEF COMPLAINT: Questionable CVA. HISTORY OF PRESENT ILLNESS: A 81-year-old male patient brought to the hospital by EMS from half-way for evaluation of left-sided weakness. Reportedly, the patient had prior history of CVA with right-sided hemiplegia and hemorrhagic CVA in the past. 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 Later, the patient went to half-way and this time, he presented back to the hospital for concerns for CVA and slurring of speech. At the time of my examination, the patient is alert, able to talk but not cooperative, not letting me examine his lower extremities. As per the RN who spoke with the patient's brother, the patient had this kind of episodic behaviors where he is not cooperative and not taking any medications. At this time, as per the brother, his baseline is stable. He is alert, able to answer questions, but not able to provide in detail. PAST MEDICAL HISTORY AND REVIEW OF SYSTEMS: Please see my electronic H and P. LABORATORY FINDINGS: WBC is 6.3, hemoglobin is 10.6, MCV is 94, platelets 55. Chemistry, sodium is 140, potassium is 3.8, chloride 102, carbon dioxide 29, gap is 13, creatinine is 1.1, GFR is 86, troponin is less than 0.017. INR is 1.4. IMAGING STUDIES: Chest x-ray no acute process, bilateral lower lobe atelectasis. Head CT no acute intracranial findings seen. ASSESSMENT AND PLAN: 1. Weakness left upper extremity, unclear, not able to verify the baseline status completely. Prior history of cerebrovascular accident with weakness. 2. Right agylh-sey-beua amputation. 3. Anxiety. 4. Type 2 diabetes mellitus. 5. Hypertension. 6. Previous history of hemorrhagic stroke. 7. [facility]. PLAN: 1. The patient has been admitted, but he did not get TPA due to his prior history of hemorrhagic CVA. However, he got aspirin. I did review his home medications. 2. We will try to get hold of family to check his baseline status. 3. Neurology has been consulted for further recommendations. I do not think he needs any further investigations at this time. I will ask physical therapy and occupational therapy and speech to evaluate him. 4. Sliding insulin. 5. DVT prophylaxis. 6. Monitor labs, CBC, BMP. 7. Prognosis guarded. NORMA LINARES MD DR: BEVERLY/javed JOB#: [id number] / [id number] CLARA
[2016-03-26] MEDS: ASPIRIN 300 MG SUPP.RECT PR SCH (21:53)
[2016-03-26] MEDS: ENOXAPARIN 40 MG/0.4 ML DISP.SYRIN. SQ SCH (21:54)
[2016-03-26 23:39] VITALS: BP 121/84
[2016-03-27 03:00] VITALS: BP 147/69
[2016-03-27] MEDS: buPROPion XL 150 MG TAB.ER.24H PO SCH ×3 (04:21→21:10)
[2016-03-27] MEDS: GABAPENTIN 300 MG CAPSULE. PO SCH ×4 (04:21→21:10)
[2016-03-27] MEDS: SIMVASTATIN 10 MG TABLET PO SCH ×2 (04:22→21:10)
[2016-03-27] MEDS: PHENYTOIN SODIUM EXTENDED 100 MG CAPSULE PO SCH ×3 (04:22→21:10)
[2016-03-27 05:21] LABS: BASO % 0 % (0-3); EOS % 2 % (0-3); HEMATOCRIT 30.8 % (39.0-53.0); HEMOGLOBIN 10.5 g/dL (13.0-17.5); LYMPH % 35 % (24-48); MEAN CORPUSCULAR HEMOGLOBIN 32 pg (25-35); MEAN CORPUSCULAR HGB CONC 34 g/dL (31-37); MEAN CORPUSCULAR VOLUME 93 fL (79-100); MONO % 11 % (0-9); NEUT % 52 % (31-73); PLATELET COUNT 301 x10^3/uL (140-400); RED CELL DISTRIBUTION WIDTH 15.2 % (11.5-14.5); WHITE BLOOD COUNT 5.7 x10^3/uL (4.0-11.0)
[2016-03-27] MEDS: IV NORMAL SALINE 1000ML BAG 1,000 ML IV SCH ×2 (05:46→18:56)
[2016-03-27 06:40] LABS: CALCIUM 8.8 mg/dL (8.5-10.1); CREATININE 0.8 mg/dL (0.7-1.3); GFR 112.8; POTASSIUM 3.6 mmol/L (3.5-5.1)
[2016-03-27 07:25] VITALS: BP 127/70
[2016-03-27] MEDS: CLOPIDOGREL BISULFATE 75 MG TABLET PO SCH (08:00)
[2016-03-27] MEDS: DUTASTERIDE 0.5 MG CAPSULE PO SCH (08:44)
[2016-03-27] MEDS: GLIMEPIRIDE 2 MG TABLET PO SCH (08:44)
[2016-03-27] MEDS: DOXAZOSIN MESYLATE 1 MG TABLET PO SCH (08:44)
[2016-03-27] MEDS: LOSARTAN POTASSIUM 25 MG TABLET. PO SCH (08:45)
[2016-03-27] MEDS: METFORMIN 500 MG TABLET. PO SCH (08:45)
[2016-03-27] MEDS: MAGNESIUM HYDROXIDE 2,400 MG/30 ML ORAL.SUSP. PO SCH (08:45)
[2016-03-27] MEDS: MULTIVITAMIN with MINERAL TABLET. PO SCH (08:45)
[2016-03-27] MEDS: ISOSORBIDE MONONITRATE ER 30 MG TAB.ER.24H PO SCH (08:45)
--- NOTE | 2016-03-27 13:15 | PDOC ---
PROGRESS NOTES Chief Complaint Chief Complaint A/P 1. Weakness left upper extremity, unclear, not able to verify the baseline status completely. Prior history of cerebrovascular accident with weakness. 2. Right mtpsp-ajb-ceit amputation. 3. Anxiety. 4. Type 2 diabetes mellitus. 5. Hypertension. 6. Previous history of hemorrhagic stroke. 7. [facility] resident Plan CVA work up pending, pt is not co operative to labs and imaging studies, SSI PT/OT SW consult family members not available immediacy Follow neurology recommendation s Plavix prognosis guarded. Vitals Vitals Vital Signs Date Time Temp Pulse Resp B/P Pulse Ox O2 Delivery O2 Flow Rate FiO2 03/27/16 08:00 Room Air 03/27/16 07:25 82 19 127/70 97 03/27/16 03:00 97.9 97.9 Physical Exam General: Alert, Other Heart: Normal S1, Normal S2 Lungs: Clear Abdomen: Normal bowel sounds, Soft Labs LABS Laboratory Tests Test 03/26/16 22:34 03/27/16 04:45 Glucose (Fingerstick) 85mg/dL (70-99) White Blood Count 5.7x10^3/uL (4.0-11.0) Red Blood Count 3.30x10^6/uL (4.30-5.70) Hemoglobin 10.5g/dL (13.0-17.5) Hematocrit 30.8% (39.0-53.0) Mean Corpuscular Volume 93fL (79-100) Mean Corpuscular Hemoglobin 32pg (25-35) Mean Corpuscular Hemoglobin Concent 34g/dL (31-37) Red Cell Distribution Width 15.2% (11.5-14.5) Platelet Count 301x10^3/uL (140-400) Neutrophils (%) (Auto) 52% (31-73) Lymphocytes (%) (Auto) 35% (24-48) Monocytes (%) (Auto) 11% (0-9) Eosinophils (%) (Auto) 2% (0-3) Basophils (%) (Auto) 0% (0-3) Neutrophils # (Auto) 2.9x10^3uL (1.8-7.7) Lymphocytes # (Auto) 2.0x10^3/uL (1.0-4.8) Monocytes # (Auto) 0.6x10^3/uL (0.0-1.1) Eosinophils # (Auto) 0.1x10^3/uL (0.0-0.7) Basophils # (Auto) 0.0x10^3/uL (0.0-0.2) Sodium Level 140mmol/L (136-145) Potassium Level 3.6mmol/L (3.5-5.1) Chloride Level 105mmol/L (98-107) Carbon Dioxide Level 25mmol/L (21-32) Anion Gap 10 (6-14) Blood Urea Nitrogen 10mg/dL (8-26) Creatinine 0.8mg/dL (0.7-1.3) Estimated GFR (Cockcroft-Gault) 112.8 Glucose Level 97mg/dL (70-99) Calcium Level 8.8mg/dL (8.5-10.1) Assessment and Plan Assessmemt and Plan Problems Medical Problems: (1) Altered mental status Status: Acute (2) Stroke Status: Acute Problems: Comment Review of Relevant I have reviewed the following items rajat (where applicable) has been applied. Labs Laboratory Tests Test 03/25/16 21:45 03/26/16 01:30 03/26/16 04:30 03/26/16 22:34 White Blood Count 6.3x10^3/uL (4.0-11.0) Red Blood Count 3.40x10^6/uL (4.30-5.70) Hemoglobin 10.6g/dL (13.0-17.5) Hematocrit 31.9% (39.0-53.0) Mean Corpuscular Volume 94fL (79-100) Mean Corpuscular Hemoglobin 31pg (25-35) Mean Corpuscular Hemoglobin Concent 33g/dL (31-37) Red Cell Distribution Width 15.2% (11.5-14.5) Platelet Count 349x10^3/uL (140-400) Neutrophils (%) (Auto) 55% (31-73) Lymphocytes (%) (Auto) 32% (24-48) Monocytes (%) (Auto) 11% (0-9) Eosinophils (%) (Auto) 2% (0-3) Basophils (%) (Auto) 0% (0-3) Neutrophils # (Auto) 3.5x10^3uL (1.8-7.7) Lymphocytes # (Auto) 2.0x10^3/uL (1.0-4.8) Monocytes # (Auto) 0.7x10^3/uL (0.0-1.1) Eosinophils # (Auto) 0.1x10^3/uL (0.0-0.7) Basophils # (Auto) 0.0x10^3/uL (0.0-0.2) Prothrombin Time 16.2SEC (11.7-14.0) Prothromb Time International Ratio 1.4 (0.8-1.1) Activated Partial Thromboplast Time 29SEC (24-38) Sodium Level 140mmol/L (136-145) Potassium Level 3.8mmol/L (3.5-5.1) Chloride Level 102mmol/L (98-107) Carbon Dioxide Level 29mmol/L (21-32) Anion Gap 9 (6-14) Blood Urea Nitrogen 13mg/dL (8-26) Creatinine 1.1mg/dL (0.7-1.3) Estimated GFR (Cockcroft-Gault) 78.1 Glucose Level 86mg/dL (70-99) Calcium Level 8.9mg/dL (8.5-10.1) Magnesium Level 2.0mg/dL (1.8-2.4) Total Bilirubin 0.1mg/dL (0.2-1.0) Direct Bilirubin < 0.1mg/dL (0.0-0.2) Aspartate Amino Transf (AST/SGOT) 33U/L (15-37) Alanine Aminotransferase (ALT/SGPT) 16U/L (16-63) Alkaline Phosphatase 241U/L (46-116) Troponin I Quantitative < 0.017ng/mL (0.000-0.055) HD-Tsi-Q-Type Natriuretic Peptide 60pg/mL (0-449) Total Protein 8.1g/dL (6.4-8.2) Albumin 3.4g/dL (3.4-5.0) Nasal Screen MRSA (PCR) Negative (Negative) Urine Collection Type Unknown Urine Color Tracie Urine Clarity Clear Urine pH 5.5 Urine Specific [place] 1.025 Urine Protein Negativemg/dL (NEG-TRACE) Urine Glucose (UA) Negativemg/dL (NEG) Urine Ketones (Stick) Tracemg/dL (NEG) Urine Blood Trace (NEG) Urine Nitrite Negative (NEG) Urine Bilirubin Small (NEG) Urine Urobilinogen Dipstick 0.2mg/dL (0.2 mg/dL) Urine Leukocyte Esterase Negative (NEG) Urine RBC 1-2/HPF (0-2) Urine WBC 0/HPF (0-4) Urine Squamous Epithelial Cells Few/LPF Urine Amorphous Sediment Present/HPF Urine Bacteria 0/HPF (0-FEW) Urine Mucus Mod/LPF Glucose (Fingerstick) 85mg/dL (70-99) Test 03/27/16 04:45 White Blood Count 5.7x10^3/uL (4.0-11.0) Red Blood Count 3.30x10^6/uL (4.30-5.70) Hemoglobin 10.5g/dL (13.0-17.5) Hematocrit 30.8% (39.0-53.0) Mean Corpuscular Volume 93fL (79-100) Mean Corpuscular Hemoglobin 32pg (25-35) Mean Corpuscular Hemoglobin Concent 34g/dL (31-37) Red Cell Distribution Width 15.2% (11.5-14.5) Platelet Count 301x10^3/uL (140-400) Neutrophils (%) (Auto) 52% (31-73) Lymphocytes (%) (Auto) 35% (24-48) Monocytes (%) (Auto) 11% (0-9) Eosinophils (%) (Auto) 2% (0-3) Basophils (%) (Auto) 0% (0-3) Neutrophils # (Auto) 2.9x10^3uL (1.8-7.7) Lymphocytes # (Auto) 2.0x10^3/uL (1.0-4.8) Monocytes # (Auto) 0.6x10^3/uL (0.0-1.1) Eosinophils # (Auto) 0.1x10^3/uL (0.0-0.7) Basophils # (Auto) 0.0x10^3/uL (0.0-0.2) Sodium Level 140mmol/L (136-145) Potassium Level 3.6mmol/L (3.5-5.1) Chloride Level 105mmol/L (98-107) Carbon Dioxide Level 25mmol/L (21-32) Anion Gap 10 (6-14) Blood Urea Nitrogen 10mg/dL (8-26) Creatinine 0.8mg/dL (0.7-1.3) Estimated GFR (Cockcroft-Gault) 112.8 Glucose Level 97mg/dL (70-99) Calcium Level 8.8mg/dL (8.5-10.1) Laboratory Tests Test 03/26/16 22:34 03/27/16 04:45 Glucose (Fingerstick) 85mg/dL (70-99) White Blood Count 5.7x10^3/uL (4.0-11.0) Red Blood Count 3.30x10^6/uL (4.30-5.70) Hemoglobin 10.5g/dL (13.0-17.5) Hematocrit 30.8% (39.0-53.0) Mean Corpuscular Volume 93fL (79-100) Mean Corpuscular Hemoglobin 32pg (25-35) Mean Corpuscular Hemoglobin Concent 34g/dL (31-37) Red Cell Distribution Width 15.2% (11.5-14.5) Platelet Count 301x10^3/uL (140-400) Neutrophils (%) (Auto) 52% (31-73) Lymphocytes (%) (Auto) 35% (24-48) Monocytes (%) (Auto) 11% (0-9) Eosinophils (%) (Auto) 2% (0-3) Basophils (%) (Auto) 0% (0-3) Neutrophils # (Auto) 2.9x10^3uL (1.8-7.7) Lymphocytes # (Auto) 2.0x10^3/uL (1.0-4.8) Monocytes # (Auto) 0.6x10^3/uL (0.0-1.1) Eosinophils # (Auto) 0.1x10^3/uL (0.0-0.7) Basophils # (Auto) 0.0x10^3/uL (0.0-0.2) Sodium Level 140mmol/L (136-145) Potassium Level 3.6mmol/L (3.5-5.1) Chloride Level 105mmol/L (98-107) Carbon Dioxide Level 25mmol/L (21-32) Anion Gap 10 (6-14) Blood Urea Nitrogen 10mg/dL (8-26) Creatinine 0.8mg/dL (0.7-1.3) Estimated GFR (Cockcroft-Gault) 112.8 Glucose Level 97mg/dL (70-99) Calcium Level 8.8mg/dL (8.5-10.1) Medications Current Medications Ondansetron HCl (Zofran) 4 mg PRN Q8HRS PRN IV NAUSEA/VOMITING; Start 03/25/16 at 22:30; Stop 03/26/16 at 22:29; Status DC Fentanyl Citrate (Fentanyl 2ml Vial) 50 mcg PRN Q2HR PRN IV PAIN; Start at 22:30; Stop 03/26/16 at 22:29; Status DC Acetaminophen (Tylenol) 650 mg PRN Q4HRS PRN PO FEVER; Start 03/25/16 at 22:30 ; Stop 03/26/16 at 22:29; Status DC Info (Do NOT chart on this placeholder) 1 each 1X ONCE MC ; Start 03/26/16 at 00:30; Stop 03/26/16 at 00:31; Status UNV Pneumococcal Polyvalent Vaccine (Do NOT chart on this placeholder) 1 each 1X ONCE MC ; Start 03/26/16 at 00:30; Stop 03/26/16 at 00:31; Status UNV Acetaminophen (Tylenol) 325 mg PRN Q6HRS PRN PO MILD PAIN / TEMP; Start at 09:30 Acetaminophen/ Hydrocodone Bitart (Lortab 5/325) 1 tab PRN Q6HRS PRN PO MODERATE TO SEVERE PAIN; Start 03/26/16 at 09:30 Hydralazine HCl (Apresoline) 10 mg PRN Q4HRS PRN IVP ELEVATED BP, SEE COMMENTS ; Start 03/26/16 at 09:30 Ondansetron HCl (Zofran) 4 mg PRN Q8HRS PRN IV NAUSEA/VOMITING; Start 03/26/16 at 09:30 Albuterol Sulfate (Ventolin Neb Soln) 2.5 mg PRN Q4HRS PRN NEB SHORTNESS OF BREATH; Start 03/26/16 at 09:30 Bisacodyl (Dulcolax Supp) 10 mg PRN Q48HR PRN RC CONSTIPATION; Start 03/26/16 at 09:45 Bupropion HCl (Wellbutrin Xl) 75 mg BID PO ; Start 03/26/16 at 11:00 Dutasteride (Avodart) 0.5 mg DAILY PO ; Start 03/26/16 at 11:00 Gabapentin (Neurontin) 300 mg TID PO ; Start 03/26/16 at 14:00 Ibuprofen (Motrin) 600 mg PRN Q8HRS PRN PO INFLAMMATION; Start 03/26/16 at 09: 45 Isosorbide Mononitrate (Imdur) 30 mg DAILY PO ; Start 03/26/16 at 11:00 Metformin HCl (Glucophage) 500 mg DAILY PO ; Start 03/26/16 at 11:00 Phenytoin Sodium (Dilantin) 300 mg BID PO ; Start 03/26/16 at 11:00 Senna/Docusate Sodium (Senna Plus) 2 tab PRN BID PRN PO CONSTIPATION; Start at 09:45 Simvastatin (Zocor) 10 mg QHS PO ; Start 03/26/16 at 21:00 Doxazosin Mesylate (Cardura) 2 mg DAILY PO ; Start 03/26/16 at 11:00 Glimepiride (Amaryl) 4 mg DAILY PO ; Start 03/26/16 at 12:00 Magnesium Hydroxide (Milk Of Magnesia) 2,400 mg DAILY PO ; Start 03/26/16 at 11: 00 Multivitamins/ Calcium (Thera M Plus) 1 tab DAILY PO ; Start 03/26/16 at 11:00 Losartan Potassium (Cozaar) 25 mg DAILY PO ; Start 03/26/16 at 11:00 Enoxaparin Sodium (Lovenox 40mg Syringe) 40 mg DAILY SQ Last administered on 21:54; Start 03/26/16 at 21:00 Aspirin (Timur Aspirin) 325 mg DAILYWBKFT PO ; Start 03/26/16 at 16:30; Stop at 18:14; Status DC Clopidogrel Bisulfate (Plavix) 75 mg DAILYWBKFT PO ; Start 03/26/16 at 18:00 Aspirin 300 mg 300 mg HS PA Last administered on 03/26/16 21:53; Start at 21:00 Sodium Chloride (Iv Sodium Chloride 0.9% 1000ml Bag) 1,000 ml @ 75 mls/hr [id number] IV Last administered on 03/27/16 05:46; Start 03/27/16 at 05:15 Active Scripts Active Reported Bupropion Xl (Bupropion Hcl) 150 Mg Tab.er.24h 75 Mg PO BID Senna Plus Tablet (Sennosides/Docusate Sodium) 1 Each Tablet 2 Each PO PRN BID PRN Tylenol (Acetaminophen) 325 Mg Tablet 650 Mg PO Simvastatin 10 Mg Tablet 1 Tab PO QHS Maalox Maximum Strength Susp (Mag Hydrox/Al Hydrox/Simeth) 355 Ml Oral.susp 15 Ml PO Milk Of Magnesia (Magnesium Hydroxide) 2,400 Mg/10 Ml Oral.susp 2,400 Mg PO DAILY Multiple Vitamin (Multivitamin With Minerals) 1 Each Tablet 1 Each PO DAILY Metformin Hcl 500 Mg Tablet 1 Tab PO DAILY Isosorbide Mononitrate Er (Isosorbide Mononitrate) 30 Mg Tab.er.24h 1 Tab PO DAILY Ibuprofen 600 Mg Tablet 600 Mg PO PRN Q8HRS PRN Gluco Burst (Dextrose) 37.5 Gm Gel..gram. Unknown Dose PO Glucagon Emergency Kit (Glucagon,Human Recombinant) 1 Mg Kit 1 Mg IM PRN PRN Glimepiride 4 Mg Tablet 1 Tab PO DAILY Gabapentin 300 Mg Capsule 300 Mg PO TID Dulcolax (Bisacodyl) 10 Mg Supp.rect 10 Mg RC PRN Q48HR PRN Diovan (Valsartan) 40 Mg Tablet 40 Mg PO DAILY Dilantin (Phenytoin Sodium Extended) 100 Mg Capsule 300 Mg PO BID Cardura (Doxazosin Mesylate) 2 Mg Tablet 1 Tab PO QHS Avodart (Dutasteride) 0.5 Mg Capsule 0.5 Mg PO DAILY Ativan (Lorazepam) 0.5 Mg Tablet 0.5 Mg PO PRN Q4HRS PRN Aspirin 81 Mg Tab.chew 1 Tab PO DAILY Vitals/I & O Vital Sign - Last 24 Hours 03/26/16 03/26/16 03/26/16 03/27/16 19:28 20:00 23:39 03:00 Temp 97.5 97.9 97.9 97.5 97.9 97.9 Pulse 77 90 81 Resp 18 18 18 B/P 114/68 121/84 147/69 Pulse Ox 96 96 95 O2 Delivery Room Air Room Air Room Air 03/27/16 03/27/16 07:25 08:00 Pulse 82 Resp 19 B/P 127/70 Pulse Ox 97 O2 Delivery Room Air Room Air Intake and Output 03/26/16 03/26/16 03/27/16 15:00 23:00 07:00 Intake Total 100 ml 60 ml Output Total 250 ml 500 ml Balance -150 ml -440 ml NORMA LINARES MD Mar 27, 2016 13:15
[2016-03-27 14:45] VITALS: BP 112/73
--- NOTE | 2016-03-27 18:05 | PDOC ---
PROGRESS NOTES Assessment Problems Medical Problems: (1) Altered mental status Status: Acute (2) Stroke Status: Acute Problems: Plan This patient is 81-year-old male who presented to the emergency room via EMS with left-sided weakness. Information from patient's brother at bedside. Patient came from alf via EMS with complaint of left-sided weakness. His last seen normal was yesterday afternoon and was having difficulty speaking and was having left-sided weakness and left facial droop. Patient was taking aspirin before. 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 Patient is status post surgical clipping per brother. He had a CT scan of the brain done in the ER which did not show any acute process. We will recommend stroke workup. Pending MRI of the brain cannot be done due to's status post surgical clipping of aneurysm. Aspirin. Will switch to Plavix 75 mg daily Stroke protocol Statin 2-D echo carotid Doppler pending Continue medical management Subjective Noacute events Objective Vital Signs Date Time Temp Pulse Resp B/P Pulse Ox O2 Delivery O2 Flow Rate FiO2 03/27/16 14:45 97.7 90 19 112/73 98 Room Air 97.7 Intake and Output 03/27/16 07:00 Intake Total 160 ml Output Total 750 ml Balance -590 ml Intake Oral 160 ml Output Urine Total 750 ml PHYSICAL EXAM PHYSICAL EXAMINATION: General appearance is in acute distress. HEENT: Normocephalic and nontraumatic. Eyes, nose, ears, and throat are unremarkable. Neck is supple. No lymphadenopathy. No crepitus. Cardiovascular: S1, S2, regular rate and rhythm. Pulmonary: Clear to auscultation bilaterally. Abdomen: Bowel sounds are positive. Abdomen is soft, nontender, and nondistended. Extremities: No rash, lesions, or edema. No restriction of range of motion NEUROLOGICAL EXAMINATION: Alert Oriented to time, place and person. PERRL. EOMI. CN: no focal findings. Muscle tone: within normal. Muscle strength: good in upper exts right leg amp+ left leg withdraw to pain DTR: 1-2 Plantar reflex: Flexor response left toes Gait: not examined in bed. Sensory exam: no abnormal findings. No obvious cerebellar signs elicited. Review of Relevant I have reviewed the following items rajat (where applicable) has been applied. Labs Laboratory Tests Test 03/25/16 21:45 03/26/16 01:30 03/26/16 04:30 03/26/16 22:34 White Blood Count 6.3x10^3/uL (4.0-11.0) Red Blood Count 3.40x10^6/uL (4.30-5.70) Hemoglobin 10.6g/dL (13.0-17.5) Hematocrit 31.9% (39.0-53.0) Mean Corpuscular Volume 94fL (79-100) Mean Corpuscular Hemoglobin 31pg (25-35) Mean Corpuscular Hemoglobin Concent 33g/dL (31-37) Red Cell Distribution Width 15.2% (11.5-14.5) Platelet Count 349x10^3/uL (140-400) Neutrophils (%) (Auto) 55% (31-73) Lymphocytes (%) (Auto) 32% (24-48) Monocytes (%) (Auto) 11% (0-9) Eosinophils (%) (Auto) 2% (0-3) Basophils (%) (Auto) 0% (0-3) Neutrophils # (Auto) 3.5x10^3uL (1.8-7.7) Lymphocytes # (Auto) 2.0x10^3/uL (1.0-4.8) Monocytes # (Auto) 0.7x10^3/uL (0.0-1.1) Eosinophils # (Auto) 0.1x10^3/uL (0.0-0.7) Basophils # (Auto) 0.0x10^3/uL (0.0-0.2) Prothrombin Time 16.2SEC (11.7-14.0) Prothromb Time International Ratio 1.4 (0.8-1.1) Activated Partial Thromboplast Time 29SEC (24-38) Sodium Level 140mmol/L (136-145) Potassium Level 3.8mmol/L (3.5-5.1) Chloride Level 102mmol/L (98-107) Carbon Dioxide Level 29mmol/L (21-32) Anion Gap 9 (6-14) Blood Urea Nitrogen 13mg/dL (8-26) Creatinine 1.1mg/dL (0.7-1.3) Estimated GFR (Cockcroft-Gault) 78.1 Glucose Level 86mg/dL (70-99) Calcium Level 8.9mg/dL (8.5-10.1) Magnesium Level 2.0mg/dL (1.8-2.4) Total Bilirubin 0.1mg/dL (0.2-1.0) Direct Bilirubin < 0.1mg/dL (0.0-0.2) Aspartate Amino Transf (AST/SGOT) 33U/L (15-37) Alanine Aminotransferase (ALT/SGPT) 16U/L (16-63) Alkaline Phosphatase 241U/L (46-116) Troponin I Quantitative < 0.017ng/mL (0.000-0.055) HD-Yyz-L-Type Natriuretic Peptide 60pg/mL (0-449) Total Protein 8.1g/dL (6.4-8.2) Albumin 3.4g/dL (3.4-5.0) Nasal Screen MRSA (PCR) Negative (Negative) Urine Collection Type Unknown Urine Color Tracie Urine Clarity Clear Urine pH 5.5 Urine Specific [place] 1.025 Urine Protein Negativemg/dL (NEG-TRACE) Urine Glucose (UA) Negativemg/dL (NEG) Urine Ketones (Stick) Tracemg/dL (NEG) Urine Blood Trace (NEG) Urine Nitrite Negative (NEG) Urine Bilirubin Small (NEG) Urine Urobilinogen Dipstick 0.2mg/dL (0.2 mg/dL) Urine Leukocyte Esterase Negative (NEG) Urine RBC 1-2/HPF (0-2) Urine WBC 0/HPF (0-4) Urine Squamous Epithelial Cells Few/LPF Urine Amorphous Sediment Present/HPF Urine Bacteria 0/HPF (0-FEW) Urine Mucus Mod/LPF Glucose (Fingerstick) 85mg/dL (70-99) Test 03/27/16 04:45 White Blood Count 5.7x10^3/uL (4.0-11.0) Red Blood Count 3.30x10^6/uL (4.30-5.70) Hemoglobin 10.5g/dL (13.0-17.5) Hematocrit 30.8% (39.0-53.0) Mean Corpuscular Volume 93fL (79-100) Mean Corpuscular Hemoglobin 32pg (25-35) Mean Corpuscular Hemoglobin Concent 34g/dL (31-37) Red Cell Distribution Width 15.2% (11.5-14.5) Platelet Count 301x10^3/uL (140-400) Neutrophils (%) (Auto) 52% (31-73) Lymphocytes (%) (Auto) 35% (24-48) Monocytes (%) (Auto) 11% (0-9) Eosinophils (%) (Auto) 2% (0-3) Basophils (%) (Auto) 0% (0-3) Neutrophils # (Auto) 2.9x10^3uL (1.8-7.7) Lymphocytes # (Auto) 2.0x10^3/uL (1.0-4.8) Monocytes # (Auto) 0.6x10^3/uL (0.0-1.1) Eosinophils # (Auto) 0.1x10^3/uL (0.0-0.7) Basophils # (Auto) 0.0x10^3/uL (0.0-0.2) Sodium Level 140mmol/L (136-145) Potassium Level 3.6mmol/L (3.5-5.1) Chloride Level 105mmol/L (98-107) Carbon Dioxide Level 25mmol/L (21-32) Anion Gap 10 (6-14) Blood Urea Nitrogen 10mg/dL (8-26) Creatinine 0.8mg/dL (0.7-1.3) Estimated GFR (Cockcroft-Gault) 112.8 Glucose Level 97mg/dL (70-99) Calcium Level 8.8mg/dL (8.5-10.1) Laboratory Tests Test 03/26/16 22:34 03/27/16 04:45 Glucose (Fingerstick) 85mg/dL (70-99) White Blood Count 5.7x10^3/uL (4.0-11.0) Red Blood Count 3.30x10^6/uL (4.30-5.70) Hemoglobin 10.5g/dL (13.0-17.5) Hematocrit 30.8% (39.0-53.0) Mean Corpuscular Volume 93fL (79-100) Mean Corpuscular Hemoglobin 32pg (25-35) Mean Corpuscular Hemoglobin Concent 34g/dL (31-37) Red Cell Distribution Width 15.2% (11.5-14.5) Platelet Count 301x10^3/uL (140-400) Neutrophils (%) (Auto) 52% (31-73) Lymphocytes (%) (Auto) 35% (24-48) Monocytes (%) (Auto) 11% (0-9) Eosinophils (%) (Auto) 2% (0-3) Basophils (%) (Auto) 0% (0-3) Neutrophils # (Auto) 2.9x10^3uL (1.8-7.7) Lymphocytes # (Auto) 2.0x10^3/uL (1.0-4.8) Monocytes # (Auto) 0.6x10^3/uL (0.0-1.1) Eosinophils # (Auto) 0.1x10^3/uL (0.0-0.7) Basophils # (Auto) 0.0x10^3/uL (0.0-0.2) Sodium Level 140mmol/L (136-145) Potassium Level 3.6mmol/L (3.5-5.1) Chloride Level 105mmol/L (98-107) Carbon Dioxide Level 25mmol/L (21-32) Anion Gap 10 (6-14) Blood Urea Nitrogen 10mg/dL (8-26) Creatinine 0.8mg/dL (0.7-1.3) Estimated GFR (Cockcroft-Gault) 112.8 Glucose Level 97mg/dL (70-99) Calcium Level 8.8mg/dL (8.5-10.1) Medications Current Medications Ondansetron HCl (Zofran) 4 mg PRN Q8HRS PRN IV NAUSEA/VOMITING; Start 03/25/16 at 22:30; Stop 03/26/16 at 22:29; Status DC Fentanyl Citrate (Fentanyl 2ml Vial) 50 mcg PRN Q2HR PRN IV PAIN; Start at 22:30; Stop 03/26/16 at 22:29; Status DC Acetaminophen (Tylenol) 650 mg PRN Q4HRS PRN PO FEVER; Start 03/25/16 at 22:30 ; Stop 03/26/16 at 22:29; Status DC Info (Do NOT chart on this placeholder) 1 each 1X ONCE MC ; Start 03/26/16 at 00:30; Stop 03/26/16 at 00:31; Status UNV Pneumococcal Polyvalent Vaccine (Do NOT chart on this placeholder) 1 each 1X ONCE MC ; Start 03/26/16 at 00:30; Stop 03/26/16 at 00:31; Status UNV Acetaminophen (Tylenol) 325 mg PRN Q6HRS PRN PO MILD PAIN / TEMP; Start at 09:30 Acetaminophen/ Hydrocodone Bitart (Lortab 5/325) 1 tab PRN Q6HRS PRN PO MODERATE TO SEVERE PAIN; Start 03/26/16 at 09:30 Hydralazine HCl (Apresoline) 10 mg PRN Q4HRS PRN IVP ELEVATED BP, SEE COMMENTS ; Start 03/26/16 at 09:30 Ondansetron HCl (Zofran) 4 mg PRN Q8HRS PRN IV NAUSEA/VOMITING; Start 03/26/16 at 09:30 Albuterol Sulfate (Ventolin Neb Soln) 2.5 mg PRN Q4HRS PRN NEB SHORTNESS OF BREATH; Start 03/26/16 at 09:30 Bisacodyl (Dulcolax Supp) 10 mg PRN Q48HR PRN RC CONSTIPATION; Start 03/26/16 at 09:45 Bupropion HCl (Wellbutrin Xl) 75 mg BID PO ; Start 03/26/16 at 11:00 Dutasteride (Avodart) 0.5 mg DAILY PO ; Start 03/26/16 at 11:00 Gabapentin (Neurontin) 300 mg TID PO ; Start 03/26/16 at 14:00 Ibuprofen (Motrin) 600 mg PRN Q8HRS PRN PO INFLAMMATION; Start 03/26/16 at 09: 45 Isosorbide Mononitrate (Imdur) 30 mg DAILY PO ; Start 03/26/16 at 11:00 Metformin HCl (Glucophage) 500 mg DAILY PO ; Start 03/26/16 at 11:00 Phenytoin Sodium (Dilantin) 300 mg BID PO ; Start 03/26/16 at 11:00 Senna/Docusate Sodium (Senna Plus) 2 tab PRN BID PRN PO CONSTIPATION; Start at 09:45 Simvastatin (Zocor) 10 mg QHS PO ; Start 03/26/16 at 21:00 Doxazosin Mesylate (Cardura) 2 mg DAILY PO ; Start 03/26/16 at 11:00 Glimepiride (Amaryl) 4 mg DAILY PO ; Start 03/26/16 at 12:00 Magnesium Hydroxide (Milk Of Magnesia) 2,400 mg DAILY PO ; Start 03/26/16 at 11: 00 Multivitamins/ Calcium (Thera M Plus) 1 tab DAILY PO ; Start 03/26/16 at 11:00 Losartan Potassium (Cozaar) 25 mg DAILY PO ; Start 03/26/16 at 11:00 Enoxaparin Sodium (Lovenox 40mg Syringe) 40 mg DAILY SQ Last administered on 21:54; Start 03/26/16 at 21:00 Aspirin (Timur Aspirin) 325 mg DAILYWBKFT PO ; Start 03/26/16 at 16:30; Stop at 18:14; Status DC Clopidogrel Bisulfate (Plavix) 75 mg DAILYWBKFT PO ; Start 03/26/16 at 18:00 Aspirin 300 mg 300 mg HS ND Last administered on 03/26/16 21:53; Start at 21:00 Sodium Chloride (Iv Sodium Chloride 0.9% 1000ml Bag) 1,000 ml @ 75 mls/hr [id number] IV Last administered on 03/27/16 05:46; Start 03/27/16 at 05:15 Active Scripts Active Reported Bupropion Xl (Bupropion Hcl) 150 Mg Tab.er.24h 75 Mg PO BID Senna Plus Tablet (Sennosides/Docusate Sodium) 1 Each Tablet 2 Each PO PRN BID PRN Tylenol (Acetaminophen) 325 Mg Tablet 650 Mg PO Simvastatin 10 Mg Tablet 1 Tab PO QHS Maalox Maximum Strength Susp (Mag Hydrox/Al Hydrox/Simeth) 355 Ml Oral.susp 15 Ml PO Milk Of Magnesia (Magnesium Hydroxide) 2,400 Mg/10 Ml Oral.susp 2,400 Mg PO DAILY Multiple Vitamin (Multivitamin With Minerals) 1 Each Tablet 1 Each PO DAILY Metformin Hcl 500 Mg Tablet 1 Tab PO DAILY Isosorbide Mononitrate Er (Isosorbide Mononitrate) 30 Mg Tab.er.24h 1 Tab PO DAILY Ibuprofen 600 Mg Tablet 600 Mg PO PRN Q8HRS PRN Gluco Burst (Dextrose) 37.5 Gm Gel..gram. Unknown Dose PO Glucagon Emergency Kit (Glucagon,Human Recombinant) 1 Mg Kit 1 Mg IM PRN PRN Glimepiride 4 Mg Tablet 1 Tab PO DAILY Gabapentin 300 Mg Capsule 300 Mg PO TID Dulcolax (Bisacodyl) 10 Mg Supp.rect 10 Mg RC PRN Q48HR PRN Diovan (Valsartan) 40 Mg Tablet 40 Mg PO DAILY Dilantin (Phenytoin Sodium Extended) 100 Mg Capsule 300 Mg PO BID Cardura (Doxazosin Mesylate) 2 Mg Tablet 1 Tab PO QHS Avodart (Dutasteride) 0.5 Mg Capsule 0.5 Mg PO DAILY Ativan (Lorazepam) 0.5 Mg Tablet 0.5 Mg PO PRN Q4HRS PRN Aspirin 81 Mg Tab.chew 1 Tab PO DAILY Vitals/I & O Vital Sign - Last 24 Hours 03/26/16 03/26/16 03/26/16 03/27/16 19:28 20:00 23:39 03:00 Temp 97.5 97.9 97.9 97.5 97.9 97.9 Pulse 77 90 81 Resp 18 18 18 B/P 114/68 121/84 147/69 Pulse Ox 96 96 95 O2 Delivery Room Air Room Air Room Air 03/27/16 03/27/16 03/27/16 07:25 08:00 14:45 Temp 97.7 97.7 Pulse 82 90 Resp 19 B/P 127/70 112/73 Pulse Ox 97 98 O2 Delivery Room Air Room Air Room Air Intake and Output 03/26/16 03/26/16 03/27/16 15:00 23:00 07:00 Intake Total 100 ml 60 ml Output Total 250 ml 500 ml Balance -150 ml -440 ml ALICIA MIDDLETON MD Mar 27, 2016 18:05
[2016-03-27 19:42] VITALS: BP 128/84
[2016-03-27] MEDS: ASPIRIN 300 MG SUPP.RECT PR SCH (21:10)
[2016-03-27 23:52] VITALS: BP 122/74
[2016-03-28 03:44] VITALS: BP 126/75
[2016-03-28] MEDS: IV NORMAL SALINE 1000ML BAG 1,000 ML IV SCH (05:49)
[2016-03-28 07:00] VITALS: BP 112/49
--- NOTE | 2016-03-28 07:26 | RAD ---
Carotid ultrasound-incomplete exam, 03/27/2016: History: Ischemic stroke Duplex evaluation was attempted including grayscale, color-flow and spectral Doppler analysis. The patient was combative and allowed only limited portions of the right sided be examined. The left side could not be examined at this time. No high-grade stenosis was identified in the right common carotid artery or at the right carotid bulb. Only a short segment of the proximal right internal carotid artery was delineated. If the patient's condition and ability to cooperate improves, we would be happy to repeat this attempted exam.
[2016-03-28] MEDS: MAGNESIUM HYDROXIDE 2,400 MG/30 ML ORAL.SUSP. PO SCH (09:00)
[2016-03-28 09:14] LABS: BASO % 1 % (0-3); EOS % 3 % (0-3); HEMATOCRIT 28.9 % (39.0-53.0); HEMOGLOBIN 9.5 g/dL (13.0-17.5); LYMPH # 1.7 x10^3/uL (1.0-4.8); LYMPH % 40 % (24-48); MEAN CORPUSCULAR HEMOGLOBIN 32 pg (25-35); MEAN CORPUSCULAR HGB CONC 33 g/dL (31-37); MEAN CORPUSCULAR VOLUME 95 fL (79-100); MONO % 11 % (0-9); NEUT % 45 % (31-73); PLATELET COUNT 258 x10^3/uL (140-400); RED BLOOD COUNT 3.03 x10^6/uL (4.30-5.70); RED CELL DISTRIBUTION WIDTH 14.6 % (11.5-14.5); WHITE BLOOD COUNT 4.2 x10^3/uL (4.0-11.0)
[2016-03-28] MEDS: DOXAZOSIN MESYLATE 1 MG TABLET PO SCH (09:19)
[2016-03-28] MEDS: buPROPion XL 150 MG TAB.ER.24H PO SCH (09:19)
[2016-03-28] MEDS: GLIMEPIRIDE 2 MG TABLET PO SCH (09:20)
[2016-03-28] MEDS: LOSARTAN POTASSIUM 25 MG TABLET. PO SCH (09:20)
[2016-03-28] MEDS: DUTASTERIDE 0.5 MG CAPSULE PO SCH (09:20)
[2016-03-28] MEDS: METFORMIN 500 MG TABLET. PO SCH (09:20)
[2016-03-28] MEDS: GABAPENTIN 300 MG CAPSULE. PO SCH ×2 (09:20→13:16)
[2016-03-28] MEDS: PHENYTOIN SODIUM EXTENDED 100 MG CAPSULE PO SCH (09:21)
[2016-03-28] MEDS: ISOSORBIDE MONONITRATE ER 30 MG TAB.ER.24H PO SCH (09:21)
[2016-03-28] MEDS: MULTIVITAMIN with MINERAL TABLET. PO SCH (09:21)
[2016-03-28] MEDS: CLOPIDOGREL BISULFATE 75 MG TABLET PO SCH (09:21)
[2016-03-28] MEDS: ENOXAPARIN 40 MG/0.4 ML DISP.SYRIN. SQ SCH (09:22)
[2016-03-28 09:30] LABS: CALCIUM 8.4 mg/dL (8.5-10.1); CREATININE 0.7 mg/dL (0.7-1.3); GFR 131.6; POTASSIUM 3.5 mmol/L (3.5-5.1)
--- NOTE | 2016-03-28 10:53 | CARD ---
APPROVED REPORT EXAM: Two-dimensional and M-mode echocardiogram with Doppler and color Doppler. Other Information Quality : GoodHR: 62bpm Rhythm : NSR INDICATION Stroke 2D DIMENSIONS RVDd2.2 (2.9-3.5cm)Left Atrium(2D)2.5 (1.6-4.0cm) IVSd0.9 (0.7-1.1cm)Aortic Root(2D)3.4 (2.0-3.7cm) LVDd3.9 (3.9-5.9cm)LVOT Diameter2.2 (1.8-2.4cm) PWd0.9 (0.7-1.1cm)LVDs2.8 (2.5-4.0cm) FS (%) 29.5 %SV38.8 ml LVEF(%)57.1 (>50%) Aortic Valve AoV Peak Robin.177.0cm/sAoV VTI31.5cm AO Peak GR.12.5mmHgLVOT Peak Robin.143.0cm/s AO Mean GR.5mmHgAVA (VMAX)2.96cm2 Mitral Valve MV E Uvdxvrzb30.9cm/sMV E Peak Gr.6mmHg MV DECEL [id number] A Abbtjwer825.0cm/s MV E Mean Gr.3mmHgE/A Ratio0.7 MV A [id number] Pulmonary Valve PV Peak Hmesyxos282.9cm/s Tricuspid Valve TR P. Kokghbfi095tr/sTR Peak Gr.28mmHg Pulmonary Vein S1 Uepebfjg58.9cm/sD2 Wcravnqg48.3cm/s PVa [id number] LEFT VENTRICLE The left ventricle is normal size and wall thickness. he LV ejection fraction is within normal range at 60-65%. There is normal LV segmental wall motion. Transmitral Doppler flow pattern is Grade I-abno rmal relaxation pattern. No left ventricle thrombus noted on this study. RIGHT VENTRICLE The right ventricle is normal size. There is normal right ventricular wall thickness. The right ventr icular systolic function is normal. ATRIA The left atrium size is normal. The right atrium size is normal. The atrial septum is aneurysmal with no evidence for an atrial septal defect or patent foramen ovale as noted on 2-D or Doppler imaging. AORTIC VALVE The aortic valve is mildly sclerotic. Doppler and Color flow revealed no significant aortic regurgita tion or stenosis. There is no significant aortic valvular stenosis. MITRAL VALVE Mitral annular calcification is mild. The mitral valve leaflets are thickened. There is no evidence o f mitral valve prolapse, regurgitation or stenosis. There is no mitral valve stenosis. Doppler and Co hang Flow revealed no mitral valve regurgitation noted. TRICUSPID VALVE The tricuspid valve is normal in structure and function. Doppler and Color Flow revealed mild tricusp id regurgitation. The pulmonary artery systolic pressure is estimated at 33 mmHg. There is no tricusp id valve stenosis. PULMONIC VALVE Doppler and Color Flow revealed mild pulmonic valvular regurgitation. There is no pulmonic valvular s tenosis. GREAT VESSELS The aortic root and ascending aorta are normal in size. The IVC is normal in size and collapses >50% with inspiration. PERICARDIAL EFFUSION There is no evidence of significant pericardial effusion. Critical Notification Critical Value: No <Conclusion> There is normal LV segmental wall motion and systolic function. The LV ejection fraction is within no rmal range at 60-65%. There is normal LV segmental wall motion. The atrial septum is aneurysmal with no evidence for an atrial septal defect or patent foramen ovale as noted on 2-D or Doppler imaging. Incidental finding of right hepatic lobe cyst, further clinical correlation recommended.
--- NOTE | 2016-03-28 13:56 | RAD ---
Exam performed: CT scan of the head without contrast. Date of Service: 03/28/16. Comparison: CT head without contrast from 03/25/16. Clinical History: Follow-up stroke protocol, left-sided weakness and verbal change. Technique: Helical acquisitions are obtained from the foramen magnum to the vertex without intravenous administration of contrast. Findings: There is prominence of cortical sulci and ventricular system compatible with age related atrophy. There are areas of low-attenuation in both periventricular deep white matter suggesting small vessel ischemic changes. Normal dsouza-white differentiation is maintained. There is no extra axial fluid collection, intraparenchymal hemorrhage or mass lesion. Postoperative changes of left temporoparietal craniotomy with aneurysm clip in the left suprasellar region. The visualized portions of the orbits, paranasal sinuses and the mastoid air cells appear clear. The calvarium is intact. Impression: 1. Age-appropriate atrophy without any acute intracranial process. PQRS Compliance Statement: One or more of the following individualized dose reduction techniques were utilized for this examination: 1. Automated exposure control 2. Adjustment of the mA and/or kV according to patient size 3. Use of iterative reconstruction technique
[2016-03-28 15:00] VITALS: BP 121/72
--- NOTE | 2016-03-28 16:05 | DISCH ---
DISCHARGE INSTRUCTIONS Condition on Discharge Condition on Discharge: Stable Activity After Discharge Activity Instructions for Disc: Resume previous activity Diet after Discharge Diet after Discharge: Cardiac Contacting the DR. after DC Call your doctor for: Concerns you may have Follow-Up Follow up with: PCP in 1 week DARREL MCKNIGHT MD Mar 28, 2016 16:05
--- NOTE | 2016-03-28 17:31 | PDOC ---
PROGRESS NOTES Assessment Assessment IMPRESSION: MS changes. Metabolic encephalopathy. Left side weakness. UTI CAD HTN HLD Hx of seizure Right AKA S/p aneurysm clipping. RECOMMENDATIONS/PLAN: Continue Plavix 75 mg daily. Continue Zocor. Continue Dilantin 300 mg bid, check trough level in a.m. EEG MRI contraindicated due to clipping of aneurysm. Treat medical diseases. OT/PT. 2 HCTs: Negative for CVA. OBJECTIVE:S No signs of large CVA. PAST MEDICAL AND SURGICAL HISTORY: Please see H&P ALLERGY: Reviewed. MEDICATIONS: Refer to MAR REVIEW OF SYSTEMS: Constitutional: No malnutrition, weight loss, cachexia. Head: No traumatic brain or head injury. Skin: No edema, or rash. Ear: No infection, tinnitus. Eyes: No vision loss, or diplopia. Nose: No bleeding or purulent discharges. Hearing: Hearing loss. Neck: No injury. Cardiac: CAD, HTN, HLD Pulmonary: No COPD. GI: No GI Ulcer, GI bleeding Urinary/genital: UTI. Endocrine: Diabetes Mellitus Skeletomuscular: Right AKA. Neurological: see HP. Psychiatric: Denies drug use/abuse. Otherwise, not [id number] review of systems. PHYSICAL EXAMINATION: General appearance in no acute distress. HEENT: Normocephalic and nontraumatic. Eyes, nose, ears, and throat are unremarkable. Hearing decrease. Neck is supple. No lymphadenopathy. No bruits are heard over the carotid artery. No Crepitus. Cardiovascular: S1, S2, regular rate and rhythm. Pulmonary: Clear to auscultation bilaterally. Abdomen: Bowel sounds are positive. Abdomen is soft, nontender, and nondistended. Extremities: No rash, lesions, or edema. No restriction of range of motion except right AKA. NEUROLOGICAL EXAMINATION: Alert. Oriented to place and person. PERRL. EOMI. CN: no focal findings. Muscle tone: within normal. Muscle strength: 4+ DTR: 1 Plantar reflex: Left side flexor response Gait: Unable to walk. Sensory exam: no abnormal findings. No obvious cerebellar signs elicited. F-T-N test fine. Objective Objective Vital Signs Date Time Temp Pulse Resp B/P Pulse Ox O2 Delivery O2 Flow Rate FiO2 03/28/16 15:00 97.9 89 20 121/72 95 Room Air 97.9 Intake and Output 03/28/16 07:00 Intake Total 110 ml Output Total 550 ml Balance -440 ml Intake Oral 110 ml Output Urine Total 550 ml # Bowel Movements 1 Vitals Signs Vitals VS - Last 72 Hours, by Label Date Time Temp Pulse Resp B/P Pulse Ox O2 Delivery O2 Flow Rate FiO2 03/28/16 15:00 97.9 89 20 121/72 95 Room Air 97.9 03/28/16 09:21 64 112/49 03/28/16 09:20 64 112/49 03/28/16 09:19 64 112/49 03/28/16 08:00 Room Air 03/28/16 07:00 97.9 64 20 112/49 95 Room Air 97.9 03/28/16 03:44 97.7 64 18 126/75 98 Room Air 97.7 03/27/16 23:52 98.4 90 18 122/74 95 Room Air 98.4 03/27/16 20:20 Room Air 03/27/16 19:42 99.1 86 18 128/84 96 Room Air 99.1 03/27/16 14:45 97.7 90 19 112/73 98 Room Air 97.7 03/27/16 08:00 Room Air 03/27/16 07:25 82 19 127/70 97 Room Air Laboratory Laboratory Laboratory Tests Test 03/28/16 08:17 White Blood Count 4.2x10^3/uL (4.0-11.0) Red Blood Count 3.03x10^6/uL (4.30-5.70) Hemoglobin 9.5g/dL (13.0-17.5) Hematocrit 28.9% (39.0-53.0) Mean Corpuscular Volume 95fL (79-100) Mean Corpuscular Hemoglobin 32pg (25-35) Mean Corpuscular Hemoglobin Concent 33g/dL (31-37) Red Cell Distribution Width 14.6% (11.5-14.5) Platelet Count 258x10^3/uL (140-400) Neutrophils (%) (Auto) 45% (31-73) Lymphocytes (%) (Auto) 40% (24-48) Monocytes (%) (Auto) 11% (0-9) Eosinophils (%) (Auto) 3% (0-3) Basophils (%) (Auto) 1% (0-3) Neutrophils # (Auto) 1.9x10^3uL (1.8-7.7) Lymphocytes # (Auto) 1.7x10^3/uL (1.0-4.8) Monocytes # (Auto) 0.5x10^3/uL (0.0-1.1) Eosinophils # (Auto) 0.1x10^3/uL (0.0-0.7) Basophils # (Auto) 0.0x10^3/uL (0.0-0.2) Sodium Level 142mmol/L (136-145) Potassium Level 3.5mmol/L (3.5-5.1) Chloride Level 107mmol/L (98-107) Carbon Dioxide Level 24mmol/L (21-32) Anion Gap 11 (6-14) Blood Urea Nitrogen 6mg/dL (8-26) Creatinine 0.7mg/dL (0.7-1.3) Estimated GFR (Cockcroft-Gault) 131.6 Glucose Level 76mg/dL (70-99) Calcium Level 8.4mg/dL (8.5-10.1) Comment Review of Relevant I have reviewed the following items rajat (where applicable) has been applied. TATE JENSEN MD Mar 28, 2016 17:31
--- NOTE | 2016-03-29 20:41 | DS ---
DATE OF DISCHARGE: 03/28/2016 CHIEF COMPLAINT: Question stroke. HOSPITAL COURSE: The patient is a 81-year-old gentleman with past medical history of CAD, PVD status post BKA in January of 2016, who [facility] with apparent weakness, question mental status changes. He was admitted for further workup here. Neurology was consulted and no sign of TIA or CVA, could be discerned. The patient was therefore returned to nursing facility. PHYSICAL EXAMINATION: VITAL SIGNS: Show blood pressure of 121/72, heart rate of 89, respiratory rate of 20. He is afebrile. GENERAL: This is a well-nourished 81-year-old gentleman, lethargic, nonverbal. HEENT: Shows no scleral icterus. LUNGS: Clear. HEART: Regular rate and rhythm. ABDOMEN: Positive bowel sounds, soft, nontender. EXTREMITIES: With BKA on the right, incision well healed. DISPOSITION: To SNF. CONDITION: Improved. DISCHARGE DIAGNOSES: Question neurological symptoms. DISCHARGE MEDICATIONS: Please refer to MAR. DISCHARGE INSTRUCTIONS: The patient will follow up with PCP [facility]. Greater than 30 minutes were spent in arranging discharge. DARREL MCKNIGHT MD DR: UR/nts JOB#: [id number] / [id number] Madhav Gaona MD MTDD
== END 2016-03-28 18:05 | DRG 64 ==
LOC: ER 20:37 → 6 SOUTH 21:50
PROVIDERS: ADMIT Internal Medicine; ATTEND Internal Medicine
DX: I63.9 Cerebral infarction, unspecified (principal); G93.41 Metabolic encephalopathy; N39.0 Urinary tract infection, site not specified; E11.9 Type 2 diabetes mellitus without complications; E78.00 Pure hypercholesterolemia, unspecified; E78.5 Hyperlipidemia, unspecified; F41.9 Anxiety disorder, unspecified; G40.909 Epilepsy, unspecified, not intractable, without status epilepticus; I10 Essential (primary) hypertension; I25.10 Atherosclerotic heart disease of native coronary artery without angina pectoris; I73.9 Peripheral vascular disease, unspecified; N40.0 Benign prostatic hyperplasia without lower urinary tract symptoms; Z79.02 Long term (current) use of antithrombotics/antiplatelets; Z82.49 Family history of ischemic heart disease and other diseases of the circulatory system; Z86.79 Personal history of other diseases of the circulatory system; Z89.511 Acquired absence of right leg below knee; Z89.611 Acquired absence of right leg above knee
CPT/HCPCS: 36415; 70450; 71010; 80048; 80076; 81001; 82947; 83735; 83880; 84484; 85027; 85610; 85730; 87641; 93005; 93306; 93880; J1650; J7030; 97530; 97535; 99285-25